=== PATIENT | male | born 1985 | race Caucasian/White ===

== ENCOUNTER 2025-03-18 00:05 | Emergency (ER) | payer OTHER ==
[~2025-03-18] VITALS: Ht 180.3 cm; Wt 74.8 kg
[~2025-03-18 00:05] MED LIST: ACYCLOVIR800 MG PO; AMOXIL500 MG PO; DARVOCET N 1001 TAB PO; DAYPRO600 M1 PO
[2025-03-18] MEDS ORDERED: PREDNISONE20 M1 PO (00:35)
== END 2025-03-18 00:59 | disposition home or self-care (01) ==
LOC: ED 00:05
DX: L23.7 Allergic contact dermatitis due to plants, except food (principal); Z79.899 Other long term (current) drug therapy; Z96.22 Myringotomy tube(s) status